=== PATIENT | male | born 1930 | race Caucasian/White ===

== ENCOUNTER 2017-05-26 12:43 | Inpatient (IN) | payer MEDICARE, BC ==
[~2017-05-26] VITALS: Ht 175.3 cm; Wt 77.8 kg
--- NOTE | 2017-05-26 12:51 | NUR ---
Pt.was seen by .
[2017-05-26] MEDS ORDERED: IV NORMAL SALINE 1000 ML BAG IV ONE (13:00)
[2017-05-26] MEDS ORDERED: ATOR10TA PO (13:21)
[2017-05-26] MEDS ORDERED: ZOLPIDEM PO (13:21)
[2017-05-26] MEDS ORDERED: TIMO5SOL11 EACHEYE (13:21)
[2017-05-26] MEDS ORDERED: METF500T6 PO (13:21)
[2017-05-26] MEDS ORDERED: DULOXETINE DR PO (13:21)
[2017-05-26] MEDS ORDERED: EYEDROPS (13:21)
[2017-05-26] MEDS ORDERED: PANTOPRAZOLE EC PO (13:21)
[2017-05-26] MEDS ORDERED: HYDR-3204 PO (13:21)
[2017-05-26] MEDS ORDERED: ZOLPIDEM 5MG PO (13:22)
[2017-05-26 13:26] LABS: BASOPHILS % (AUTO) 0.3 % (0.0-2.0); EOSINOPHILS # (AUTO) 0.5 K/uL (0.0-0.7); HEMATOCRIT 46.6 % (36.7-47.1); HEMOGLOBIN 15.7 g/dL (12.5-16.3); LYMPHOCYTES # (AUTO) 0.6 K/uL (20.0-40.0); LYMPHOCYTES % (AUTO) 6.3 % (20.5-51.5); MEAN CORPUSCULAR HEMOGLOBIN 31.8 uug (23.8-33.4); MEAN CORPUSCULAR HGB CONC 34 g/dL (32.5-36.3); MEAN CORPUSCULAR VOLUME 94.3 fL (73.0-96.2); MONOCYTES # (AUTO) 0.4 K/uL (2.0-10.0); MONOCYTES % (AUTO) 4.3 % (0.0-11.0); NEUTROPHILS # (AUTO) 7.8 K/uL (1.8-8.9); NEUTROPHILS % (AUTO) 84.1 % (38.5-71.5); PLATELET COUNT (AUTO) 183 K/uL (152-348); RED BLOOD CELL COUNT(AUTO) 4.94 MIL/uL (4.06-5.63); WHITE BLOOD COUNT (AUTO) 9.2 K/uL (3.6-10.2)
[2017-05-26 13:36] LABS: CARBON DIOXIDE 26 mmol/L (21-32); CHLORIDE 104 mmol/L (98-107); CREATININE 1.3 mg/dL (0.6-1.3); GLUCOSE 117 mg/dL (74-106); POTASSIUM 5.1 mmol/L (3.5-5.1); UREA NITROGEN, BLOOD 26 mg/dL (7-18)
--- NOTE | 2017-05-26 13:42 | NUR ---
Daughter at bedside, updated with pt. condition and plan of care.
[2017-05-26 13:48] LABS: ALANINE AMINOTRANSFERASE 28 U/L (16-63); ALKALINE PHOSPHATASE 73 U/L (50-136); ASPARTATE AMINOTRANSFERASE 24 U/L (15-37); BILIRUBIN,DIRECT 0.3 mg/dL (0.0-0.2); BILIRUBIN,TOTAL 1.3 mg/dL (0.2-1.0); TOTAL PROTEIN, SERUM 7.6 g/dL (6.4-8.2)
--- NOTE | 2017-05-26 14:34 | NUR ---
Pt.will be admited to m/s floor.SBAR report given to Joseph/ARIANA.
[2017-05-26] MEDS ORDERED: MAGNESIUM HYDROXIDE 30 ML LIQUID UDC PO PRN (14:45)
[2017-05-26] MEDS ORDERED: INSULIN REGULAR, HUMAN 300 UNIT/3 ML VIAL SQ PRN (14:45)
[2017-05-26] MEDS ORDERED: HYDROCODONE/APAP 5-325MG TABLET PO PRN ×2 (14:45→18:15)
[2017-05-26] MEDS ORDERED: ACETAMINOPHEN 325 MG TABLET PO PRN (14:45)
[2017-05-26] MEDS ORDERED: ONDANSETRON 4 MG/2 ML VIAL IV PRN (14:45)
[2017-05-26] MEDS ORDERED: DEXTROSE 50% 50 ML DISP.SYRIN IV PRN (14:45)
[2017-05-26] MEDS ORDERED: Z GUARD REMEDY PASTE 57 GM TUBE TOP PRN (14:45)
[2017-05-26] MEDS ORDERED: INSULIN REGULAR, HUMAN 300 UNITS/3 ML VIAL SQ PRN (14:45)
[2017-05-26 15:12] LABS: *BILIRUBIN,URIN NEGATIVE (NEGATIVE); *BLOOD, URINE NEGATIVE (NEGATIVE); *CLARITY,URINE CLEAR (CLEAR); *COLOR,URINE YELLOW (YELLOW); *KETONES,URINE TRACE (NEGATIVE); *PROTEIN,URINE TRACE (NEGATIVE); *UROBILINOGEN,URINE 0.2 E.U./dl (NORMAL); LEUKOCYTE ESTERASE ,URINE NEGATIVE (NEGATIVE); NITRITE, URINE NEGATIVE (NEGATIVE); UGLUCOSE NEGATIVE (NEGATIVE)
--- NOTE | 2017-05-26 15:15 | NUR ---
Pt.voided,denies any pain no s/s of acute distress.
[2017-05-26 15:23] LABS: MUCUS,URINE MODERATE /LPF (0-FEW); RBC,URINE 0-3 /HPF (0-3); WBC,URINE 0-3 /HPF (0-3)
--- NOTE | 2017-05-26 15:29 | NUR ---
Pt.was Tx.to M/S floor SBAR report updated at bedside.
[2017-05-26 15:51] VITALS: BP 140/67
--- NOTE | 2017-05-26 16:00 | NUR ---
PATIENT TRANSFERRED BY MICHELLE INTO MED-SURG FLOOR FROM ER AT 1527 IN STABLE CONDITION, NO S/S OF DISTRESS AT THIS TIME, VITAL SIGNS TAKEN AND DOCUMENTED. PATIENT CHANGED, BELONGINGS CHECKLIST COMPLETED AND SIGNED, IV FLUSHED AND PATENT. IVF STARTED. DAUGHTER AT BEDSIDE. DAUGHTER WILL BRING IN ADVANCE DIRECTIVE DOCUMENTS WHEN SHE COMES INTO HOSPITAL THE NEXT TIME. BLOOD SUGAR CHECKED: 108, NO COVERAGE NEEDED. PATIENT IS AMBULATORY WITHOUT ASSISTANCE, ALERT/ORIENTEDX3. DOES NOT NEED ASSISTIVE DEVICES TO AMBULATE. SKIN IS INTACT. BED IN LOCKED/LOW POSITION, SIDE RAILS UP X2, BED ALARM ON, CALL LIGHT WITHIN REACH. FALL PRECAUTION IMPLEMENTED DUE TO PATIENT'S WEAKNESS AND DEHYDRATION.
[2017-05-26] MEDS: BLOOD SUGAR DIAGNOSTIC 1 EACH STRIP VI SCH ×2 (16:58→20:31)
[2017-05-26] MEDS: IV NS 1000 ML 1,000 ML IV PRN (17:03)
[2017-05-26] MEDS ORDERED: Medication Not On Formulary EA (Hydrocodone Bit/Acetaminophen (Hydrocodon-Acetaminophen PO PRN (17:15)
--- NOTE | 2017-05-26 18:23 | NUR ---
PATIENT RESTING COMFORTABLY IN BED AT THIS TIME, NO S/S OF DISTRESS. STABLE CONDITION. PATIENT DID NOT HAVE AN APPETITE FOR DINNER AND DID NOT EAT ANY OF THE DINNER THAT WAS PROVIDED. NO DIARRHEA NOTED SO FAR. STATES THAT HE STILL FEELS WEAK. OTHERWISE IN STABLE CONDITION. BED ALARM ON, CALL LIGHT WITHIN REACH, IV FLUIDS RUNNING.
--- NOTE | 2017-05-26 19:30 | NUR ---
PT IN ROOM ALERT, ORIENTED, AND AWAKE IN NO ACUTE DISTRESS. STATES HE FEELS 'GAS' IN HIS STOMACH LATELY BUT ABLE TO HAVE A BM RECENTLY. NO S/S OF HYPER/HYPOGLYCEMIA, CONFUSION, OR INCREASED DEHYDRATION NOTED. ABLE TO MAKE NEEDS KNOWN. CONTINUE TO MONITOR. CALL LIGHT PLACED WITHIN REACH. MAINTAINING IV HYDRATION AT THIS TIME.
[2017-05-26 20:00] VITALS: BP 124/61
--- NOTE | 2017-05-27 01:13 | NUR ---
PT C/O HEARTBURN AND REQUESTING A MEDICATION. MD HAND MARKER DR SIMPSON WAS PAGED. CONTINUE TO MONITOR.
--- NOTE | 2017-05-27 03:15 | NUR ---
DR SIMPSON ORDERED TUMS FOR PT'S HEARTBURN. NOTED AND CARRIED OUT. PT AWARE.
[2017-05-27] MEDS ORDERED: CALCIUM CARBONATE 500 MG TAB.CHEW PO PRN (03:30)
[2017-05-27] MEDS: IV NS 1000 ML 1,000 ML IV PRN (03:32)
--- NOTE | 2017-05-27 05:00 | NUR ---
PT IN ROOM ALERT AWAKE IN NO ACUTE DISTRESS. ABLE TO SLEEP WELL WITH NO FURTHER C/O HEARTBURN SINCE RECEIVING TUMS. CONTINUING IV HYDRATION OF NS. NO NEW ORDERS AT THIS TIME. PT STATED HE WANTS HIS EYE DROP MEDICATION TWICE DAILY.
[2017-05-27 05:14] VITALS: BP 135/63
[2017-05-27] MEDS: BLOOD SUGAR DIAGNOSTIC 1 EACH STRIP VI SCH ×2 (06:55→11:12)
[2017-05-27] MEDS ORDERED: PANTOPRAZOLE SODIUM 40 MG TABLET.DR PO SCH (07:00)
[2017-05-27 07:22] LABS: BASOPHILS % (AUTO) 0.5 % (0.0-2.0); EOSINOPHILS # (AUTO) 0.4 K/uL (0.0-0.7); EOSINOPHILS % (AUTO) 8.7 % (0.0-7.0); HEMATOCRIT 40.2 % (36.7-47.1); HEMOGLOBIN 13.8 g/dL (12.5-16.3); LYMPHOCYTES # (AUTO) 1.2 K/uL (20.0-40.0); LYMPHOCYTES % (AUTO) 23.4 % (20.5-51.5); MEAN CORPUSCULAR HEMOGLOBIN 32.3 uug (23.8-33.4); MEAN CORPUSCULAR HGB CONC 34 g/dL (32.5-36.3); MEAN CORPUSCULAR VOLUME 94.3 fL (73.0-96.2); MONOCYTES # (AUTO) 0.4 K/uL (2.0-10.0); MONOCYTES % (AUTO) 8.6 % (0.0-11.0); NEUTROPHILS % (AUTO) 58.8 % (38.5-71.5); PLATELET COUNT (AUTO) 145 K/uL (152-348); RED BLOOD CELL COUNT(AUTO) 4.27 MIL/uL (4.06-5.63)
--- NOTE | 2017-05-27 07:52 | NUR ---
RECEIVED SHIFT REPORT FROM PEAR PICKER NURSE. PT RESTING COMFORTABLY IN BED. IVF RUNNING. STABLE CONDITION. NO S/S OF DISTRESS. WILL CONTINUE TO MONITOR. CALL LIGHT WITHIN REACH.
[2017-05-27 08:39] LABS: CARBON DIOXIDE 26 mmol/L (21-32); CHLORIDE 108 mmol/L (98-107); GLUCOSE 82 mg/dL (74-106); MAGNESIUM 1.6 mg/dL (1.8-2.4); PHOSPHOROUS 2.3 mg/dL (2.5-4.9); POTASSIUM 4.5 mmol/L (3.5-5.1); UREA NITROGEN, BLOOD 18 mg/dL (7-18)
[2017-05-27] MEDS ORDERED: DULOXETINE PO SCH (09:00)
[2017-05-27] MEDS ORDERED: TIMOLOL MALEATE XE 0.5% OPHT 5 ML BOTTLE EACHEYE SCH (09:00)
[2017-05-27] MEDS ORDERED: DULOXETINE 20 MG CAPSULE.DR PO SCH (09:00)
[2017-05-27] MEDS ORDERED: DIPHENOXYLATE HCL/ATROP SULF TABLET PO PRN (11:00)
[2017-05-27 11:30] VITALS: BP 147/62
--- NOTE | 2017-05-27 12:43 | NUR ---
Pt discharged home at this time. In stable condition. V/S WNL. In no acute distress noted. Pt instructions given. Belongings checked and signed by pt. ID band and IV site removed. Assisted to lobby and picked up by daughter. Left hospital in stable condition.
== END 2017-05-27 12:30 | disposition home or self-care (01) | DRG 641 ==
LOC: ER 12:43 → MED 15:21
PROVIDERS: ADMIT Internal Medicine; ATTEND Internal Medicine
DX: E86.0 Dehydration (principal); K52.9 Noninfective gastroenteritis and colitis, unspecified; E11.9 Type 2 diabetes mellitus without complications; E78.5 Hyperlipidemia, unspecified; H40.9 Unspecified glaucoma; Z79.899 Other long term (current) drug therapy; Z79.84 Long term (current) use of oral hypoglycemic drugs; I10 Essential (primary) hypertension; F41.9 Anxiety disorder, unspecified; F32.9 Major depressive disorder, single episode, unspecified; R55 Syncope and collapse
CPT/HCPCS: 36415; 70030-TC; 71045; 83605; 83735; 84100; 85025; 85730; 87040; 87086; 93005; A4663; J1815; J7030; J7040